=== PATIENT | female | born 1945 | race Caucasian/White ===

== ENCOUNTER 2021-04-18 07:07 | Day surgery (SDC) | payer OTHER ==
[2021-04-16 11:42] VITALS: BMI 44.3
[2021-04-18] MEDS: CIPROFLOXACIN 0.3% EYE DROPS 5 ML BOTTLE ONE ×3 (08:00→08:10)
[2021-04-18] MEDS: CYCLOPENTOLATE 2% OPHTH SOLN 2 ML BOTTLE ONE ×3 (08:00→08:10)
[2021-04-18] MEDS: PHENYLEPHRINE 2.5% OPHTH SOLN 15 ML BOTTLE ONE ×3 (08:00→08:10)
[2021-04-18] MEDS: TROPICAMIDE 1% OPHTH SOLN 15 ML BOTTLE ONE ×3 (08:00→08:10)
[2021-04-18] MEDS ORDERED: TETRACAINE 0.5% OPHTH SOLN 2 ML BOTTLE ONE (08:30)
[2021-04-18] MEDS ORDERED: BSS (NA/CA/MG/K) BALANCED SALT SOLUTION OPHTH SOLN 15 ML BOTTLE ONE (08:30)
[2021-04-18] MEDS ORDERED: LIDOCAINE 1% P/F 10 MG/ML VIAL ONE (08:30)
[2021-04-18] MEDS ORDERED: CARBACHOL 0.01% INTRA-OCULAR 1.5 ML VIAL ONE (08:31)
[2021-04-18] MEDS ORDERED: NEO/POLYMYX B SULF/DEXAMETH OPHTHALMIC 5ML BOTTLE ONE (08:31)
[2021-04-18] MEDS ORDERED: MIDAZOLAM HCL 2 MG/2 ML SINGLE DOSE VIAL ONE (08:42)
[2021-04-18 10:02] VITALS: TEMP 98.4
[2021-04-18 10:03] VITALS: BP 129/60; PULSE 94
== END 2021-04-18 10:05 | disposition home or self-care (01) ==
LOC: FASU 07:07
PROVIDERS: ATTEND Ophthalmology
PROC: 08RJ3JZ Replacement of Right Lens with Synthetic Substitute, Percutaneous Approach (ICD-10-PCS; principal; 2021-04-18 08:49)
DX: H26.8 Other specified cataract (principal)

== ENCOUNTER 2021-05-23 07:34 | Day surgery (SDC) | payer OTHER ==
[2021-05-21 12:21] VITALS: BMI 44.3
[2021-05-23] MEDS: PHENYLEPHRINE 2.5% OPHTH SOLN 15 ML BOTTLE ONE ×3 (08:00→08:14)
[2021-05-23] MEDS: CIPROFLOXACIN 0.3% EYE DROPS 5 ML BOTTLE ONE ×3 (08:00→08:14)
[2021-05-23] MEDS: CYCLOPENTOLATE 2% OPHTH SOLN 2 ML BOTTLE ONE ×3 (08:00→08:13)
[2021-05-23] MEDS: TROPICAMIDE 1% OPHTH SOLN 15 ML BOTTLE ONE ×3 (08:00→08:15)
[2021-05-23] MEDS ORDERED: BSS (NA/CA/MG/K) BALANCED SALT SOLUTION OPHTH SOLN 15 ML BOTTLE ONE (09:33)
[2021-05-23] MEDS ORDERED: LIDOCAINE 1% P/F 10 MG/ML VIAL ONE (09:33)
[2021-05-23] MEDS ORDERED: TETRACAINE 0.5% OPHTH SOLN 2 ML BOTTLE ONE (09:33)
[2021-05-23] MEDS ORDERED: CARBACHOL 0.01% INTRA-OCULAR 1.5 ML VIAL ONE (09:33)
[2021-05-23] MEDS ORDERED: NEO/POLYMYX B SULF/DEXAMETH OPHTHALMIC 5ML BOTTLE ONE (09:33)
[2021-05-23] MEDS ORDERED: MIDAZOLAM HCL 2 MG/2 ML SINGLE DOSE VIAL ONE (09:43)
[2021-05-23 10:49] VITALS: BP 118/74; PULSE 75; TEMP 98
== END 2021-05-23 11:10 | disposition home or self-care (01) ==
LOC: FASU 07:34
PROVIDERS: ATTEND Ophthalmology
PROC: 08RK3JZ Replacement of Left Lens with Synthetic Substitute, Percutaneous Approach (ICD-10-PCS; principal; 2021-05-23 09:48)
DX: H26.8 Other specified cataract (principal)

== ENCOUNTER → 2021-10-01 | Emergency (ER) | payer OTHER ==
[~2021-10-01] MED LIST: ACETAMINOPHEN 500 MG TABLET (FP) ONE; ACETAMINOPHEN 500 MG TABLET (FP) PO ONE; ENOXAPARIN NA (PORCINE) 100 MG/1 ML DISP.SYRIN SQ ONE
[2021-10-01 18:59] VITALS: TEMP 98.2; BMI 42.2
[2021-10-01 20:01] LABS: ALBUMIN 3.2 g/dl (3.4-5.0); BILIRUBIN,TOTAL 0.6 mg/dl (0.2-1); CREATININE 1.2 mg/dl (0.55-1.3); TOT PROT 6.8 g/dl (6.4-8.2)
[2021-10-01 20:51] LABS: BASO % 0.7 % (0-2.0); EOS % 4.7 % (0-4.5); HEMATOCRIT 36.8 % (32.4-45.2); HEMOGLOBIN 11.8 GM/dL (10.7-15.3); MCH 24.6 pg (25.7-33.7); MCHC 32.1 g/dl (32.0-36.0); MEAN CELL VOLUME 76.5 fl (80-96); MEAN PLT VOLUME 8.8 fl (7.5-11.1); MONO % 12.9 % (3.8-10.2); NEUT % 69.7 % (42.8-82.8); PLATELET COUNT 322 10^3/uL (134-434); RDW 17.2 % (11.6-15.6); WHITE BLOOD COUNT 11.7 K/mm3 (4.0-10.0)
[2021-10-01 23:14] LABS: EPITHELIAL CELLS FEW /hpf
[2021-10-02 04:17] VITALS: BP 158/78; PULSE 104
== END | disposition home or self-care (01) ==
LOC: FER 18:52
DX: I26.99 Other pulmonary embolism without acute cor pulmonale (principal)
CPT/HCPCS: 36415; 71045-TC-FY; 71275-TC; 80053; 81003; 81015; 82550; 84484; 85025; 85379; 86140; 93005; 99285-25; C9803; Q9967; U0003; U0005

== ENCOUNTER 2021-10-02 04:45 | Inpatient (IN) | payer OTHER ==
[2021-10-02 05:30] VITALS: BMI 41.5
[2021-10-02] MEDS ORDERED: ALBUTEROL SO4 HFA INHALER IH PRN (06:25)
[2021-10-02] MEDS: BUDESONIDE/FORMETEROL FUMARATE 160/4.5 mcg INHALER IH SCH ×2 (10:28→21:14)
[2021-10-02] MEDS: ENOXAPARIN NA (PORCINE) 100 MG/1 ML DISP.SYRIN SQ SCH ×2 (10:28→21:17)
[2021-10-02] MEDS: LOSARTAN POTASSIUM 50 MG TABLET PO SCH (10:29)
[2021-10-02 13:00] LABS: INR 1.26 (0.83-1.09); PROTHROMBIN TIME (PATIENT) 14.5 SEC (9.7-13.0)
[2021-10-02 13:03] LABS: ACTIVATED PTT 47.3 SECONDS (25.2-36.5); BLOOD UREA NITROGEN 14.8 mg/dL (7-18); CALCIUM 8.8 mg/dL (8.5-10.1)
[2021-10-02 13:04] LABS: MAGNESIUM 2.1 mg/dL (1.8-2.4)
[2021-10-02 13:06] LABS: PHOSPHOROUS 3.5 mg/dL (2.5-4.9)
[2021-10-02 13:07] LABS: CREATININE 1.1 mg/dL (0.55-1.3)
[2021-10-02 13:08] LABS: BILIRUBIN,TOTAL 0.5 mg/dL (0.2-1); TOT PROT 6.8 g/dl (6.4-8.2)
[2021-10-02] MEDS: PANTOPRAZOLE 40 MG TABLET PO SCH (19:09)
[2021-10-02] MEDS: MELATONIN 5 MG TABLETS PO PRN (21:17)
[2021-10-03 07:33] LABS: BASO % 0.5 % (0-2.0); EOS % 6.1 % (0-4.5); HEMATOCRIT 32.3 % (32.4-45.2); HEMOGLOBIN 10.5 GM/dL (10.7-15.3); LYMPH % 16.1 % (8-40); MCH 25.3 pg (25.7-33.7); MCHC 32.6 g/dl (32.0-36.0); MEAN CELL VOLUME 77.5 fl (80-96); MEAN PLT VOLUME 8.6 fl (7.5-11.1); MONO % 14.8 % (3.8-10.2); NEUT % 62.5 % (42.8-82.8); PLATELET COUNT 270 10^3/uL (134-434); RBC 4.17 M/mm3 (3.60-5.2); RDW 17.3 % (11.6-15.6); WHITE BLOOD COUNT 8.3 K/mm3 (4.0-10.0)
[2021-10-03 08:01] LABS: CALCIUM 8.7 mg/dL (8.5-10.1)
[2021-10-03 08:02] LABS: BLOOD UREA NITROGEN 11.2 mg/dL (7-18)
[2021-10-03 08:05] LABS: CREATININE 0.9 mg/dL (0.55-1.3)
[2021-10-03] MEDS: ENOXAPARIN NA (PORCINE) 100 MG/1 ML DISP.SYRIN SQ SCH (09:23)
[2021-10-03] MEDS: BUDESONIDE/FORMETEROL FUMARATE 160/4.5 mcg INHALER IH SCH ×2 (09:23→22:24)
[2021-10-03] MEDS: LOSARTAN POTASSIUM 50 MG TABLET PO SCH (09:23)
[2021-10-03] MEDS: PANTOPRAZOLE 40 MG TABLET PO SCH (09:23)
[2021-10-03] MEDS ORDERED: LEVALBUTEROL HCL 0.63 MG/3 ML VIAL.NEB. IH PRN (10:45)
[2021-10-03] MEDS: APIXABAN 5 MG TABLET PO SCH (22:23)
[2021-10-03] MEDS: MELATONIN 5 MG TABLETS PO PRN (22:30)
[2021-10-04 08:04] LABS: BASO % 0.6 % (0-2.0); EOS % 7.7 % (0-4.5); HEMATOCRIT 32.7 % (32.4-45.2); HEMOGLOBIN 10.5 GM/dL (10.7-15.3); LYMPH % 14.4 % (8-40); MCH 25.1 pg (25.7-33.7); MEAN CELL VOLUME 78.3 fl (80-96); MEAN PLT VOLUME 8.8 fl (7.5-11.1); MONO % 17.2 % (3.8-10.2); NEUT % 60.1 % (42.8-82.8); PLATELET COUNT 263 10^3/uL (134-434); RBC 4.18 M/mm3 (3.60-5.2); RDW 17.3 % (11.6-15.6); WHITE BLOOD COUNT 7.4 K/mm3 (4.0-10.0)
[2021-10-04 08:22] LABS: BLOOD UREA NITROGEN 8.8 mg/dL (7-18); CALCIUM 8.5 mg/dL (8.5-10.1)
[2021-10-04 08:26] LABS: CREATININE 0.9 mg/dL (0.55-1.3)
[2021-10-04] MEDS ORDERED: ALBUTEROL SO4 HFA INHALER IH PRN (09:23)
[2021-10-04] MEDS: LOSARTAN POTASSIUM 50 MG TABLET PO SCH (09:28)
[2021-10-04] MEDS: PANTOPRAZOLE 40 MG TABLET PO SCH ×2 (09:28→12:27)
[2021-10-04] MEDS: APIXABAN 5 MG TABLET PO SCH (09:28)
[2021-10-04] MEDS ORDERED: BUDESONIDE/FORMETEROL FUMARATE 160/4.5 mcg INHALER IH SCH (10:00)
[2021-10-04 13:44] VITALS: BP 112/69; PULSE 62; TEMP 97.3
== END 2021-10-04 19:08 | disposition home or self-care (01) | DRG 175 ==
LOC: J4W 04:45
PROVIDERS: ADMIT Internal Medicine
DX: I26.99 Other pulmonary embolism without acute cor pulmonale (principal); J96.01 Acute respiratory failure with hypoxia; I31.3 Pericardial effusion (noninflammatory); Z68.41 Body mass index [BMI] 40.0-44.9, adult; I10 Essential (primary) hypertension; E66.9 Obesity, unspecified; I27.20 Pulmonary hypertension, unspecified; K21.9 Gastro-esophageal reflux disease without esophagitis; J45.909 Unspecified asthma, uncomplicated; E11.9 Type 2 diabetes mellitus without complications; E05.90 Thyrotoxicosis, unspecified without thyrotoxic crisis or storm; R77.8 Other specified abnormalities of plasma proteins; J44.9 Chronic obstructive pulmonary disease, unspecified; Z86.16 Personal history of COVID-19
CPT/HCPCS: 36415; 71045-TC-FY; 71275-TC; 80048; 80053; 81003; 81015; 82550; 83735; 83880; 84100; 84484; 85025; 85379; 85610; 85730; 86140; 86850; 86900; 86901; 93005; 93306-TC; 93970-TC; 94761; 99285-25; C9803-CS; Q9967; U0003; U0005

== ENCOUNTER 2021-10-05 00:22 | Observation (INO) | payer OTHER ==
[2021-10-05] MEDS ORDERED: ALBUTEROL SO4 HFA INHALER IH PRN (01:45)
[2021-10-05] MEDS: APIXABAN 5 MG TABLET PO SCH ×3 (02:19→22:01)
[2021-10-05] MEDS ORDERED: SODIUM CHLORIDE NASAL SPRAY 44 ML BOTTLE NS PRN (02:48)
[2021-10-05 02:52] VITALS: BMI 42.3
[2021-10-05] MEDS: BUDESONIDE/FORMETEROL FUMARATE 160/4.5 mcg INHALER IH SCH ×2 (11:02→22:01)
[2021-10-05] MEDS: LOSARTAN POTASSIUM 50 MG TABLET PO SCH (11:02)
[2021-10-05] MEDS: PANTOPRAZOLE SOD 40 MG SUSPENSION PACKET PO SCH (13:03)
[2021-10-05] MEDS ORDERED: ACETAMINOPHEN 1000 MG/100 ML BAG IVPB ONE (19:23)
[2021-10-05 19:41] LABS: BASO % 0.8 % (0-2.0); EOS % 7.6 % (0-4.5); HEMATOCRIT 36.9 % (32.4-45.2); HEMOGLOBIN 11.3 GM/dL (10.7-15.3); LYMPH % 9.1 % (8-40); MCH 24.2 pg (25.7-33.7); MCHC 30.5 g/dl (32.0-36.0); MEAN CELL VOLUME 79.2 fl (80-96); MEAN PLT VOLUME 8.8 fl (7.5-11.1); MONO % 10.9 % (3.8-10.2); NEUT % 71.6 % (42.8-82.8); PLATELET COUNT 315 10^3/uL (134-434); RBC 4.65 M/mm3 (3.60-5.2); RDW 18.1 % (11.6-15.6); WHITE BLOOD COUNT 9.5 K/mm3 (4.0-10.0)
[2021-10-05 19:50] LABS: BLOOD UREA NITROGEN 10.1 mg/dL (7-18); CALCIUM 9.7 mg/dL (8.5-10.1)
[2021-10-05 19:51] LABS: ALBUMIN 3.2 g/dl (3.4-5.0)
[2021-10-05 19:55] LABS: BILIRUBIN,TOTAL 0.5 mg/dL (0.2-1)
[2021-10-05 19:56] LABS: TOT PROT 7.6 g/dl (6.4-8.2)
[2021-10-05 20:13] LABS: LACTIC ACID 3.6 mmol/L (0.4-2.0)
[2021-10-05] MEDS ORDERED: ACETAMINOPHEN 325 MG TABLET (FP) PO ONE (20:57)
[2021-10-05 21:05] LABS: PH,URINE 5.5 (5.0-8.0); URINE APPEARANCE CLEAR; URINE BILIRUBIN NEGATIVE (NEGATIVE); URINE COLOR YELLOW; URINE GLUCOSE (UA) NEGATIVE (NEGATIVE); URINE KETONE NEGATIVE (NEGATIVE); URINE LEUK ESTERASE NEGATIVE (NEGATIVE); URINE NITRITE NEGATIVE (NEGATIVE); URINE PROTEIN TRACE (NEGATIVE)
[2021-10-06] MEDS: APIXABAN 5 MG TABLET PO SCH ×2 (09:53→21:33)
[2021-10-06] MEDS: LOSARTAN POTASSIUM 50 MG TABLET PO SCH (09:54)
[2021-10-06] MEDS: PANTOPRAZOLE SOD 40 MG SUSPENSION PACKET PO SCH (09:54)
[2021-10-06] MEDS: BUDESONIDE/FORMETEROL FUMARATE 160/4.5 mcg INHALER IH SCH ×2 (09:54→21:39)
[2021-10-06] MEDS ORDERED: SODIUM CHLORIDE 1,000 ML IV SCH (14:15)
[2021-10-06] MEDS: ACETAMINOPHEN 325 MG TABLET (FP) PO PRN (15:46)
[2021-10-06] MEDS: PANTOPRAZOLE 40 MG TABLET PO SCH (22:22)
[2021-10-07] MEDS: ACETAMINOPHEN 325 MG TABLET (FP) PO PRN (05:58)
[2021-10-07] MEDS: APIXABAN 5 MG TABLET PO SCH ×2 (10:07→22:00)
[2021-10-07] MEDS: PANTOPRAZOLE 40 MG TABLET PO SCH (10:08)
[2021-10-07] MEDS: LOSARTAN POTASSIUM 50 MG TABLET PO SCH (10:09)
[2021-10-07] MEDS: BUDESONIDE/FORMETEROL FUMARATE 160/4.5 mcg INHALER IH SCH ×4 (10:09→22:01)
[2021-10-07 12:33] LABS: BASO % 0.6 % (0-2.0); EOS % 8.7 % (0-4.5); HEMATOCRIT 34.7 % (32.4-45.2); HEMOGLOBIN 10.7 GM/dL (10.7-15.3); LYMPH % 10.5 % (8-40); MCH 24.3 pg (25.7-33.7); MCHC 30.9 g/dl (32.0-36.0); MEAN CELL VOLUME 78.7 fl (80-96); MEAN PLT VOLUME 9.5 fl (7.5-11.1); MONO % 11.7 % (3.8-10.2); NEUT % 68.5 % (42.8-82.8); PLATELET COUNT 313 10^3/uL (134-434); RBC 4.41 M/mm3 (3.60-5.2); RDW 18.2 % (11.6-15.6); WHITE BLOOD COUNT 8.8 K/mm3 (4.0-10.0)
[2021-10-07 12:47] LABS: CALCIUM 9.2 mg/dL (8.5-10.1)
[2021-10-07 12:48] LABS: ALBUMIN 2.7 g/dl (3.4-5.0)
[2021-10-07 12:51] LABS: CREATININE 0.9 mg/dL (0.55-1.3)
[2021-10-07 12:52] LABS: BILIRUBIN,TOTAL 0.5 mg/dL (0.2-1); TOT PROT 6.8 g/dl (6.4-8.2)
[2021-10-07] MEDS: METHYL SALICYLATE/MENTHOL OINT 30 GM TUBE TP PRN (22:57)
[2021-10-08] MEDS: LOSARTAN POTASSIUM 50 MG TABLET PO SCH (10:16)
[2021-10-08] MEDS: APIXABAN 5 MG TABLET PO SCH ×2 (10:16→21:59)
[2021-10-08] MEDS: PANTOPRAZOLE 40 MG TABLET PO SCH (10:16)
[2021-10-08] MEDS: METHYL SALICYLATE/MENTHOL OINT 30 GM TUBE TP PRN (10:17)
[2021-10-08] MEDS: ACETAMINOPHEN 325 MG TABLET (FP) PO PRN (10:19)
[2021-10-08] MEDS: BUDESONIDE/FORMETEROL FUMARATE 160/4.5 mcg INHALER IH SCH ×2 (11:09→21:59)
[2021-10-08] MEDS: ALBUTEROL SO4 2.5/IPRATROPIUM 0.5 INH SOL 3 ML VIAL.NEB. NEB PRN ×2 (17:29→23:21)
[2021-10-08] MEDS ORDERED: LIDOCAINE 5% TOPICAL PATCH TP ONE ×2 (20:47→22:00)
[2021-10-08] MEDS ORDERED: LIDOCAINE PATCH REMOVAL MC SCH (22:00)
[2021-10-09 08:03] LABS: BASO % 0.5 % (0-2.0); EOS % 10.4 % (0-4.5); HEMATOCRIT 32.1 % (32.4-45.2); HEMOGLOBIN 10.1 GM/dL (10.7-15.3); LYMPH % 15.3 % (8-40); MCH 24.6 pg (25.7-33.7); MCHC 31.6 g/dl (32.0-36.0); MEAN PLT VOLUME 8.6 fl (7.5-11.1); MONO % 11.7 % (3.8-10.2); NEUT % 62.1 % (42.8-82.8); PLATELET COUNT 313 10^3/uL (134-434); RBC 4.12 M/mm3 (3.60-5.2); RDW 17.3 % (11.6-15.6); WHITE BLOOD COUNT 6.8 K/mm3 (4.0-10.0)
[2021-10-09 08:25] LABS: ALBUMIN 2.4 g/dl (3.4-5.0); BLOOD UREA NITROGEN 7.6 mg/dL (7-18)
[2021-10-09 08:27] LABS: CREATININE 0.8 mg/dL (0.55-1.3)
[2021-10-09 08:28] LABS: BILIRUBIN,TOTAL 0.5 mg/dL (0.2-1)
[2021-10-09] MEDS ORDERED: LIDOCAINE PATCH REMOVAL MC ONE (10:00)
[2021-10-09] MEDS: PANTOPRAZOLE 40 MG TABLET PO SCH (10:34)
[2021-10-09] MEDS: APIXABAN 5 MG TABLET PO SCH (10:34)
[2021-10-09] MEDS: BUDESONIDE/FORMETEROL FUMARATE 160/4.5 mcg INHALER IH SCH ×2 (10:35→22:03)
[2021-10-09] MEDS: ACETAMINOPHEN 325 MG TABLET (FP) PO PRN (10:40)
[2021-10-09] MEDS: LOSARTAN POTASSIUM 50 MG TABLET PO SCH (10:42)
[2021-10-09] MEDS: LIDOCAINE 5% TOPICAL PATCH TP SCH (20:56)
[2021-10-09] MEDS ORDERED: LIDOCAINE PATCH REMOVAL MC SCH (22:00)
[2021-10-09] MEDS ORDERED: APIXABAN 5 MG TABLET PO ONE (22:00)
[2021-10-10] MEDS: LOSARTAN POTASSIUM 50 MG TABLET PO SCH (10:15)
[2021-10-10] MEDS: PANTOPRAZOLE 40 MG TABLET PO SCH (10:15)
[2021-10-10] MEDS: APIXABAN 5 MG TABLET PO SCH ×2 (10:15→21:36)
[2021-10-10] MEDS: BUDESONIDE/FORMETEROL FUMARATE 160/4.5 mcg INHALER IH SCH ×2 (10:16→21:37)
[2021-10-10] MEDS: LIDOCAINE 5% TOPICAL PATCH TP SCH (10:16)
[2021-10-10] MEDS ORDERED: FUROSEMIDE 40 MG TABLET (FP) PO ONE (19:34)
[2021-10-10] MEDS ORDERED: LIDOCAINE 5% TOPICAL PATCH TP SCH (22:00)
[2021-10-11] MEDS ORDERED: FUROSEMIDE 40 MG/4 ML INJECTABLE VIAL IVPUSH ONE (06:00)
[2021-10-11 08:54] LABS: BASO % 0.7 % (0-2.0); EOS % 12.5 % (0-4.5); HEMATOCRIT 32.3 % (32.4-45.2); HEMOGLOBIN 10.1 GM/dL (10.7-15.3); LYMPH % 15.3 % (8-40); MCH 24.2 pg (25.7-33.7); MCHC 31.1 g/dl (32.0-36.0); MEAN CELL VOLUME 77.8 fl (80-96); MEAN PLT VOLUME 9.1 fl (7.5-11.1); MONO % 12.4 % (3.8-10.2); NEUT % 59.1 % (42.8-82.8); PLATELET COUNT 354 10^3/uL (134-434); RBC 4.16 M/mm3 (3.60-5.2); RDW 17.1 % (11.6-15.6); WHITE BLOOD COUNT 6.7 K/mm3 (4.0-10.0)
[2021-10-11 09:10] LABS: CALCIUM 9.8 mg/dL (8.5-10.1)
[2021-10-11 09:11] LABS: BLOOD UREA NITROGEN 9.9 mg/dL (7-18)
[2021-10-11 09:14] LABS: CREATININE 0.8 mg/dL (0.55-1.3)
[2021-10-11] MEDS: BUDESONIDE/FORMETEROL FUMARATE 160/4.5 mcg INHALER IH SCH (10:00)
[2021-10-11] MEDS ORDERED: LIDOCAINE PATCH REMOVAL MC SCH (10:00)
[2021-10-11] MEDS: APIXABAN 5 MG TABLET PO SCH (11:59)
[2021-10-11] MEDS: PANTOPRAZOLE 40 MG TABLET PO SCH (12:01)
[2021-10-11] MEDS: LOSARTAN POTASSIUM 50 MG TABLET PO SCH (12:01)
[2021-10-11 18:15] VITALS: BP 116/60; PULSE 100; TEMP 98.7
== END 2021-10-11 19:20 | disposition home or self-care (01) ==
LOC: JER 00:22 → JERBED 01:13 → J4S 02:15
PROVIDERS: ADMIT Hospitalist
PROC: 3E0F7GC Introduction of Other Therapeutic Substance into Respiratory Tract, Via Natural or Artificial Opening (ICD-10-PCS; principal; 2021-10-05)
PROC: 3E0337Z Introduction of Electrolytic and Water Balance Substance into Peripheral Vein, Percutaneous Approach (ICD-10-PCS; 2021-10-05)
DX: I26.94 Multiple subsegmental thrombotic pulmonary emboli without acute cor pulmonale (principal); Z99.81 Dependence on supplemental oxygen; Z68.41 Body mass index [BMI] 40.0-44.9, adult; E66.01 Morbid (severe) obesity due to excess calories; J18.9 Pneumonia, unspecified organism; Z79.01 Long term (current) use of anticoagulants; I47.1 Supraventricular tachycardia; Z86.16 Personal history of COVID-19; J44.9 Chronic obstructive pulmonary disease, unspecified; E78.5 Hyperlipidemia, unspecified; Z87.891 Personal history of nicotine dependence; E11.9 Type 2 diabetes mellitus without complications; J96.01 Acute respiratory failure with hypoxia; I26.99 Other pulmonary embolism without acute cor pulmonale; Z88.0 Allergy status to penicillin; J45.998 Other asthma
CPT/HCPCS: 36415; 71045-TC-FY; 80048; 80053; 81003; 82962; 83605; 84550; 85025; 87040; 87086; 94010; 94640; 96360; 99285-25; C9803; G0378; U0003; U0005